=== PATIENT | female | born 1975 | race African-American/Black ===

== ENCOUNTER 2019-04-18 11:50 | Emergency (ER) | payer OTHER ==
--- OUTSIDE RECORDS SUMMARY | 2019-04-18 11:53 | XMS REPORT ---
:1975 [facility] Address [address] [place] [address] Care Team Providers Name Role Phone Unavailable Unavailable Unavailable Payers Payer Name Policy Type Policy Number Effective Date Expiration Date Problems This patient has no known problems. Allergies, Adverse Reactions, Alerts Allergy Allergy Status Severity Reaction(s) Onset Inactive Treating Comments Name Type Date Date Clinician breonna GODOY Active U 2015-07 00:00:0 0 Medications This patient has no known medications. Encounters Start End Encounter Admission Attending Care Care Encounter Date/Time Date/Time Type Type Clinicians Facility Department ID 2018-11-29 2018-11-29 Emergency E [facility]NE [id number] 13:24:00 13:24:00 2018-11-20 2018-11-20 Emergency [facility] [id number] 19:47:48 19:47:48 2018-11-18 2018-11-18 Emergency E [facility] [id number] 10:35:00 10:35:00 2018-10-17 2018-10-17 Outpatient E [facility] MED [id number] 19:48:00 19:48:00 2018-10-15 2018-10-15 Emergency E [facility] [id number] 13:41:00 13:41:00
[2019-04-18] MEDS ORDERED: NA CHLORIDE 0.9% 1,000 ML ONE ×2 (12:30→13:01)
--- NOTE | 2019-04-18 12:52 | RAD REPORT ---
EXAM DESCRIPTION: Otoniel Single View04/18/2019 12:36 pm CLINICAL HISTORY: cough COMPARISON: none FINDINGS: The lungs appear clear of acute infiltrate. The heart is normal size IMPRESSION: No acute abnormalities displayed
[2019-04-18] MEDS ORDERED: INSULIN -REGULAR HUMAN 50 UNIT/0.5 ML ML ONE (13:01)
[2019-04-18 13:05] LABS: Absolute Lymphocytes (CBC) 2.2 K/uL (0.7-4.9); Basophils % 0.9 % (0-1.3); Hematocrit 45.4 % (36.0-45.0); Lymphocytes % 34.8 % (15.3-44.8); MPV 10.2 fL (7.6-11.3); RBC Red Blood Cell Count 5.15 M/uL (3.86-4.86)
[2019-04-18 13:28] LABS: ALT/SGPT 49 U/L (12-78); AST/SGOT 34 U/L (15-37); Albumin 3.6 g/dL (3.4-5.0); Alkaline Phosphatase 108 U/L (45-117); BUN Blood Urea Nitrogen 8 mg/dL (7-18); Bicarbonate 27 mmol/L (21-32); Bilirubin Direct 0.1 mg/dL (0-0.2); Bilirubin Total 0.5 mg/dL (0.2-1.0); Glucose Level 479 mg/dL (74-106); Magnesium 1.9 mg/dL (1.8-2.4); NT PRO-BNP 11 pg/mL (<125); Protein, Total 7.7 g/dL (6.4-8.2); Sodium Level 133 mmol/L (136-145); Troponin (Emerg Dept Use Only) < 0.02 ng/mL (0.0-0.045)
[2019-04-18 13:29] LABS: Urine Blood TRACE (NEG); Urine Glucose 2+ (NEG); Urine Protein NEGATIVE (NEG); Urine pH 6.5 (5.0-7.0)
[2019-04-18] MEDS ORDERED: IPRATROPIUM BROM 0.5MG/2.5ML ONE (13:45)
[2019-04-18] MEDS ORDERED: ALBUTEROL 2.5 MG/3 ML NEB SOL ONE (13:45)
[2019-04-18] MEDS ORDERED: INSULIN GLARGINE 100 UNITS/ML SQ ONE (14:00)
[2019-04-18] MEDS ORDERED: AZITHROMYCIN 250 MG TAB ONE (14:12)
[2019-04-18] MEDS ORDERED: CEFTRIAXONE/SWI 1gm 1 GM/10 ML SYR ONE (14:13)
[2019-04-18] MEDS ORDERED: HYDROCODONE/CHLORPHEN 5 ML/OSYR ONE (14:13)
--- NOTE | 2019-04-18 14:44 | ER ---
Nurse's Notes [facility] Name: Beatriz Cardona Age: 44 yrs Sex: Female : 1975 Arrival Date: 04/18/2019 Time: 11:55 Bed 20 Private MD: Diagnosis: Type 1 diabetes mellitus;Bronchitis, not specified as acute or chronic;Tobacco use;Tobacco abuse counseling;Cough Presentation: 04/18 12:12 Presenting complaint: Sent by PCP for BGL >450. Reports generalized weakness. Hx of hb DM1, out of insulin. Transition of care: patient was not received from another setting of care. Onset of symptoms was April 18, 2019. Risk Assessment: Do you want to hurt yourself or someone else? Patient reports no desire to harm self or others. Care prior to arrival: None. 12:12 Method Of Arrival: Ambulatory hb 12:12 Acuity: DINORAH 2 hb 12:30 Initial Sepsis Screen: Does the patient meet any 2 criteria? No. Patient's initial ca1 sepsis screen is negative. Does the patient have a suspected source of infection? No. Patient's initial sepsis screen is negative. 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 - Social history:: Patient uses alcohol, claims drinking about a 6 pack/day. Smoking status: Patient uses tobacco products, smokes one-half pack cigarettes per day, Patient uses. - Ebola Screening: : Patient negative for fever greater than or equal to 101.5 degrees Fahrenheit, and additional compatible Ebola Virus Disease symptoms Patient denies exposure to infectious person Patient denies travel to an Ebola-affected area in the 21 days before illness onset. Screenin:20 Abuse screen: Denies threats or abuse. Denies injuries from another. Nutritional ca1 screening: No deficits noted. Tuberculosis screening: No symptoms or risk factors identified. Fall Risk IV access (20 points). Assessment: 12:20 General: Appears in no apparent distress. comfortable, Behavior is calm, cooperative, ca1 appropriate for age. Pain: Denies pain. Neuro: Level of Consciousness is awake, alert, obeys commands, Oriented to person, place, time, situation, Appropriate for age. Cardiovascular: Heart tones S1 S2 present Capillary refill < 3 seconds Patient's skin is warm and dry. Respiratory: Airway is patent Respiratory effort is even, unlabored, Respiratory pattern is regular, symmetrical, Breath sounds are clear bilaterally. GI: Abdomen is round non-distended, Bowel sounds present X 4 quads. Abd is soft and non tender X 4 quads. : No deficits noted. No signs and/or symptoms were reported regarding the genitourinary system. EENT: No deficits noted. No signs and/or symptoms were reported regarding the EENT system. Derm: Skin is intact, is healthy with good turgor, Skin is pink, warm \T\ dry. Musculoskeletal: Circulation, motion, and sensation intact. Capillary refill < 3 seconds, Range of motion: intact in all extremities. 13:30 Reassessment: Patient appears in no apparent distress at this time. Patient is alert, ca1 oriented x 3, equal unlabored respirations, skin warm/dry/pink. 14:36 Reassessment: Patient appears in no apparent distress at this time. Patient is alert, ca1 oriented x 3, equal unlabored respirations, skin warm/dry/pink. 15:10 Reassessment: Discharge with CPS officer. Pt alert, oriented x 4 and ambulatory. ca1 Vital Signs: 12:11 BP 142 / 89; Pulse 107; Resp 20; Temp 97.8; Pulse Ox 100% on R/A; Weight 81.65 kg; hb Height 5 ft. 3 in. (160.02 cm); Pain 0/10; 13:20 BP 112 / 87; Pulse 99; Resp 18 S; Pulse Ox 100% on R/A; ca1 14:00 BP 122 / 82; Pulse 96; Resp 19 S; Pulse Ox 97% on R/A; ca1 15:00 BP 119 / 80; Pulse 98; Resp 17 S; Pulse Ox 100% on R/A; ca1 12:11 Body Mass Index 31.89 (81.65 kg, 160.02 cm) hb ED Course: 11:55 Patient arrived in ED. mr 12:13 Triage completed. hb 12:13 Arm band placed on. hb 12:18 Juana Jackson RN is Primary Nurse. ca1 12:20 J Carlos Casillas MD is Attending Physician. carmen 12:20 Patient has correct armband on for positive identification. Placed in gown. Bed in low ca1 position. Call light in reach. Side rails up X 1. neuropsychiatric aide on. Pulse ox on. NIBP on. Warm blanket given. 12:50 No provider procedures requiring assistance completed. Initial lab(s) drawn, by me, ca1 sent to lab. Inserted saline lock: 22 gauge in right antecubital area, using aseptic technique. Blood collected. 15:11 IV discontinued, intact, bleeding controlled, No redness/swelling at site. Pressure ca1 dressing applied. Administered Medications: 12:52 Drug: NS 0.9% 1000 ml Route: IV; Rate: 1 bolus; Site: right antecubital; ca1 14:24 Follow up: Response: No adverse reaction; IV Status: Completed infusion; IV Intake: ca1 1000ml 13:00 Drug: Insulin Regular Human 10 units {Co-Signature: em (Jean [employer] Mosley [employer]).} Route: IVP; ca1 Site: right antecubital; 14:23 Follow up: Response: No adverse reaction; Blood sugar is lowered ca1 13:07 Drug: NS 0.9% 1000 ml Route: IV; Rate: 1 bolus; Site: right antecubital; ca1 14:23 Follow up: Response: No adverse reaction; IV Status: Completed infusion; IV Intake: ca1 1000ml 13:09 Drug: Insulin Regular Human 10 units {Co-Signature: em ([employer]).} Route: ca1 Sub-Q; Site: right lower abdomen; 14:23 Follow up: Response: No adverse reaction; Blood sugar is lowered ca1 13:45 Drug: Albuterol - atroVENT (3:1) (2.5 mg - 0.5 mg) 3 ml Route: Nebulizer; ca1 15:01 Follow up: Response: No adverse reaction; Marked relief of symptoms ca1 13:55 Drug: Tussionex Pennkinetic ER 5 ml Route: PO; ca1 14:50 Follow up: Response: No adverse reaction; Marked relief of symptoms; RASS: Alert and ca1 Calm (0) 14:00 Drug: Zithromax 500 mg Route: PO; ca1 15:01 Follow up: Response: No adverse reaction ca1 14:10 Drug: LanTUS 40 units Route: Sub-Q; Site: left lower abdomen; ca1 15:01 Follow up: Response: No adverse reaction; Marked relief of symptoms ca1 15:01 Follow up: Response: No adverse reaction ca1 14:22 Drug: Rocephin 1 grams Route: IV; Rate: per protocol; Site: right antecubital; ca1 15:01 Follow up: Response: No adverse reaction; IV Status: Completed infusion ca1 14:58 Drug: Xopenex 1.25 mg Route: Inhalation; ca1 Point of Care Testing: Blood Glucose: 12:11 Blood Glucose: High (>450 mg/dL); hb Ranges: Intake: 14:23 IV: 1000ml; Total: 1000ml. ca1 14:24 IV: 1000ml; Total: 2000ml. ca1 Outcome: 14:43 Discharge ordered by . carmen 15:11 Discharged to home ambulatory. ca1 15:11 Condition: stable 15:11 Discharge instructions given to patient, Instructed on discharge instructions, follow up and referral plans. medication usage, benefits of quitting smoking, Demonstrated understanding of instructions, follow-up care, medications, Prescriptions given X x5 15:13 Patient left the ED. ca1 Signatures: J Carlos Casillas MD MD cha Rivera, Haily Cobos, RN RN Juana Jackson RN RN ca1 [employer]ley [employer] em Corrections: (The following items were deleted from the chart) 13:21 12:20 Social history: Patient uses alcohol, ca1 ca1
--- NOTE | 2019-04-18 14:45 | EDPHYS ---
Physician Documentation [facility] Name: Beatriz Cardona Age: 44 yrs Sex: Female : 1975 Arrival Date: 04/18/2019 Time: 11:55 Bed 20 Private MD: ED Physician J Carlos Casillas HPI: 04/18 13:39 This 44 yrs old Black Female presents to ER via Ambulatory with complaints of High carmen Blood Sugar. 13:39 The patient or guardian reports hyperglycemia, that was potentially precipitated by no carmen particular event, forgetting medications. Onset: The symptoms/episode began/occurred 2 day(s) ago. Associated signs and symptoms: Pertinent positives: polydipsia, polyuria. Current symptoms: In the emergency department the patient's symptoms are unchanged from the initial presentation. The patient has experienced similar episodes in the past, several times. 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 - Social history:: Patient uses alcohol, claims drinking about a 6 pack/day. Smoking status: Patient uses tobacco products, smokes one-half pack cigarettes per day, Patient uses. - Ebola Screening: : Patient negative for fever greater than or equal to 101.5 degrees Fahrenheit, and additional compatible Ebola Virus Disease symptoms Patient denies exposure to infectious person Patient denies travel to an Ebola-affected area in the 21 days before illness onset. ROS: 13:40 Constitutional: Negative for fever, chills, and weight loss, Eyes: Negative for injury, carmen pain, redness, and discharge, ENT: Negative for injury, pain, and discharge, Neck: Negative for injury, pain, and swelling, Cardiovascular: Negative for chest pain, palpitations, and edema, Abdomen/GI: Negative for abdominal pain, nausea, vomiting, diarrhea, and constipation, Back: Negative for injury and pain, : Negative for injury, bleeding, discharge, and swelling, MS/Extremity: Negative for injury and deformity, Skin: Negative for injury, rash, and discoloration, Neuro: Negative for headache, weakness, numbness, tingling, and seizure, Psych: Negative for depression, anxiety, suicide ideation, homicidal ideation, and hallucinations, Allergy/Immunology: Negative for hives, rash, and allergies, Endocrine: Negative for neck swelling, polydipsia, polyuria, polyphagia, and marked weight changes, Hematologic/Lymphatic: Negative for swollen nodes, abnormal bleeding, and unusual bruising. 13:40 Respiratory: Positive for cough, shortness of breath, wheezing, expiratory. Exam: 13:40 Constitutional: This is a well developed, well nourished patient who is awake, alert, carmen and in no acute distress. Head/Face: Normocephalic, atraumatic. Eyes: Pupils equal round and reactive to light, extra-ocular motions intact. Lids and lashes normal. Conjunctiva and sclera are non-icteric and not injected. Cornea within normal limits. Periorbital areas with no swelling, redness, or edema. ENT: Nares patent. No nasal discharge, no septal abnormalities noted. Tympanic membranes are normal and external auditory canals are clear. Oropharynx with no redness, swelling, or masses, exudates, or evidence of obstruction, uvula midline. Mucous membranes moist. Neck: Trachea midline, no thyromegaly or masses palpated, and no cervical lymphadenopathy. Supple, full range of motion without nuchal rigidity, or vertebral point tenderness. No Meningismus. Chest/axilla: Normal chest wall appearance and motion. Nontender with no deformity. No lesions are appreciated. Cardiovascular: Regular rate and rhythm with a normal S1 and S2. No gallops, murmurs, or rubs. Normal PMI, no JVD. No pulse deficits. Abdomen/GI: Soft, non-tender, with normal bowel sounds. No distension or tympany. No guarding or rebound. No evidence of tenderness throughout. Back: No spinal tenderness. No costovertebral tenderness. Full range of motion. Female : Normal external genitalia. Skin: Warm, dry with normal turgor. Normal color with no rashes, no lesions, and no evidence of cellulitis. MS/ Extremity: Pulses equal, no cyanosis. Neurovascular intact. Full, normal range of motion. Neuro: Awake and alert, GCS 15, oriented to person, place, time, and situation. Cranial nerves II-XII grossly intact. Motor strength 5/5 in all extremities. Sensory grossly intact. Cerebellar exam normal. Normal gait. Psych: Awake, alert, with orientation to person, place and time. Behavior, mood, and affect are within normal limits. 13:40 Respiratory: mild respiratory distress is noted, moderate respiratory distress is noted, Respirations: labored breathing, that is mild, Breath sounds: bronchial sounds, decreased breath sounds, rhonchi, wheezing: inspiratory expiratory Respiratory rate: 18 14:43 Musculoskeletal/extremity: DVT Exam: No signs of deep vein thrombosis. no pain, no carmen swelling, no tenderness, negative Homans' sign noted on exam, no appreciated bluish discoloration, no erythema, no increased warmth. Vital Signs: 12:11 BP 142 / 89; Pulse 107; Resp 20; Temp 97.8; Pulse Ox 100% on R/A; Weight 81.65 kg; hb Height 5 ft. 3 in. (160.02 cm); Pain 0/10; 13:20 BP 112 / 87; Pulse 99; Resp 18 S; Pulse Ox 100% on R/A; ca1 14:00 BP 122 / 82; Pulse 96; Resp 19 S; Pulse Ox 97% on R/A; ca1 15:00 BP 119 / 80; Pulse 98; Resp 17 S; Pulse Ox 100% on R/A; ca1 12:11 Body Mass Index 31.89 (81.65 kg, 160.02 cm) hb MDM: 12:20 Patient medically screened. [facility] 14:43 Data reviewed: vital signs, nurses notes, lab test result(s), EKG, radiologic studies, carmen plain films. 04/18 12:17 Order name: Glucose 04/18 12:23 Order name: Glucose, Ancillary Testing; Complete Time: 13:18 EDMS 04/18 12:23 Order name: Basic Metabolic Panel [facility] 04/18 12:23 Order name: CBC with Diff [facility] 04/18 12:23 Order name: LFT's [facility] 04/18 12:23 Order name: Magnesium [facility] 04/18 12:23 Order name: NT PRO-BNP [facility] 04/18 12:23 Order name: PT-INR [facility] 04/18 12:23 Order name: Troponin (emerg Dept Use Only) [facility] 04/18 12:24 Order name: Urine Culture [facility] 04/18 13:09 Order name: Urine Dipstick--Ancillary (enter results) 04/18 13:09 Order name: Urine --Ancillary (enter results) 04/18 13:11 Order name: CBC with Automated Diff; Complete Time: 13:18 EDMS 04/18 13:11 Order name: Protime (+INR); Complete Time: 13:18 EDAK 04/18 12:23 Order name: XRAY Chest (1 view) [facility] 04/18 13:09 Order name: RAD; Complete Time: 13:18 EDAK 04/18 13:23 Order name: Glucose Level; Complete Time: 13:33 EDMS 04/18 13:29 Order name: Basic Metabolic Panel; Complete Time: 13:33 EDMS 04/18 13:29 Order name: Liver (Hepatic) Function; Complete Time: 13:33 EDMS 04/18 13:29 Order name: Troponin (Emerg Dept Use Only); Complete Time: 13:33 EDAK 04/18 13:29 Order name: NT PRO-BNP; Complete Time: 13:33 EDMS 04/18 13:29 Order name: Magnesium; Complete Time: 13:33 EDAK 04/18 13:31 Order name: Urine --Ancillary; Complete Time: 13:33 [facility] 04/18 13:31 Order name: Urine Dipstick-Ancillary; Complete Time: 13:33 [facility] 04/18 13:38 Order name: Influenza Screen (a \T\ B) [facility] 04/18 14:30 Order name: Glucose, Ancillary Testing; Complete Time: 14:42 EDAK 04/18 14:35 Order name: Influenza Screen (A ; Complete Time: 14:42 EDAK 04/18 12:23 Order name: EKG; Complete Time: 12:25 [facility] 04/18 12:23 Order name: Cardiac monitoring; Complete Time: 12:56 [facility] 04/18 12:23 Order name: EKG - Nurse/Tech; Complete Time: 14:23 [facility] 04/18 12:23 Order name: IV Saline Lock; Complete Time: 12:56 [facility] 04/18 12:23 Order name: Labs collected and sent; Complete Time: 12:57 [facility] 04/18 12:24 Order name: O2 Per Protocol; Complete Time: 12:57 [facility] 04/18 12:24 Order name: O2 Sat Monitoring; Complete Time: 12:56 [facility] 04/18 12:24 Order name: Urine Dipstick-Ancillary (obtain specimen); Complete Time: 12:56 [facility] 04/18 12:24 Order name: Urine Test (obtain specimen); Complete Time: 12:56 [facility] 04/18 13:34 Order name: Blood Glucose Level: 2 pm; Complete Time: 14:23 [facility] Administered Medications: 12:52 Drug: NS 0.9% 1000 ml Route: IV; Rate: 1 bolus; Site: right antecubital; ca1 14:24 Follow up: Response: No adverse reaction; IV Status: Completed infusion; IV Intake: ca1 1000ml 13:00 Drug: Insulin Regular Human 10 units {Co-Signature: em (Jean [employer] Mosley [employer]).} Route: IVP; ca1 Site: right antecubital; 14:23 Follow up: Response: No adverse reaction; Blood sugar is lowered ca1 13:07 Drug: NS 0.9% 1000 ml Route: IV; Rate: 1 bolus; Site: right antecubital; ca1 14:23 Follow up: Response: No adverse reaction; IV Status: Completed infusion; IV Intake: ca1 1000ml 13:09 Drug: Insulin Regular Human 10 units {Co-Signature: em ([employer]ley [employer]).} Route: ca1 Sub-Q; Site: right lower abdomen; 14:23 Follow up: Response: No adverse reaction; Blood sugar is lowered ca1 13:45 Drug: Albuterol - atroVENT (3:1) (2.5 mg - 0.5 mg) 3 ml Route: Nebulizer; ca1 15:01 Follow up: Response: No adverse reaction; Marked relief of symptoms ca1 13:55 Drug: Tussionex Pennkinetic ER 5 ml Route: PO; ca1 14:50 Follow up: Response: No adverse reaction; Marked relief of symptoms; RASS: Alert and ca1 Calm (0) 14:00 Drug: Zithromax 500 mg Route: PO; ca1 15:01 Follow up: Response: No adverse reaction ca1 14:10 Drug: LanTUS 40 units Route: Sub-Q; Site: left lower abdomen; ca1 15:01 Follow up: Response: No adverse reaction; Marked relief of symptoms ca1 15:01 Follow up: Response: No adverse reaction ca1 14:22 Drug: Rocephin 1 grams Route: IV; Rate: per protocol; Site: right antecubital; ca1 15:01 Follow up: Response: No adverse reaction; IV Status: Completed infusion ca1 14:58 Drug: Xopenex 1.25 mg Route: Inhalation; ca1 Point of Care Testing: Blood Glucose: 12:11 Blood Glucose: High (>450 mg/dL); hb Ranges: Critical Glucose Levels:Adult <50 mg/dl or >400 mg/dl <40 mg/dl or >180 mg/dl Disposition: 04/18/19 14:43 Discharged to Home. Impression: Type 1 diabetes mellitus, Bronchitis, not specified as acute or chronic, Tobacco use, Tobacco abuse counseling, Cough. - Condition is Stable. - Discharge Instructions: Acute Bronchitis, Adult, How to Use an Inhaler, Steps to Quit Smoking, Smoking Hazards, Upper Respiratory Infection, Adult, Cool Mist Vaporizer, Upper Respiratory Infection, Adult, [id number], Cough, Adult, Dsvm-to-Vlaz, Cough, Adult. - Prescriptions for Bromfed DM 2- 30-10 mg/5 mL Oral syrup - take 10 milliliter by ORAL route 6 times per day; 160 milliliter. Lantus 100 unit/mL Subcutaneous solution - inject 40 unit by SUBCUTANEOUS route once daily; 1 Cartridge. Novolin R 100 unit/mL Injection solution - inject 5 unit by SUBCUTANEOUS route 3 times per day with breakfast lunch and dinner; 1 Syringe. Albuterol Sulfate 90 mcg/actuation - inhale 1-2 puff by INHALATION route every 4-6 hours; 1 Inhaler. Zithromax 500 mg Oral Tablet - take 1 tablet by ORAL route once daily for 4 days; 4 tablet. - Medication Reconciliation Form, Thank You Letter, Antibiotic Education, Prescription Opioid Use form. - Follow up: Private Physician; When: 2 - 3 days; Reason: Recheck today's complaints, Continuance of care, Re-evaluation by your physician. - Problem is new. - Symptoms have improved. Signatures: Dispatcher [employer] EDJ Carlos Mark MD MD cha Baxter, Heather, RN RN hb Juana Jackson RN RN ca1 Jean [employer] Mosley [employer] em Corrections: (The following items were deleted from the chart) 13:21 12:20 Social history: Patient uses alcohol, ca1 ca1 15:13 14:43 04/18/2019 14:43 Discharged to Home. Impression: Type 1 diabetes mellitus; ca1 Bronchitis, not specified as acute or chronic; Tobacco use; Tobacco abuse counseling; Cough. Condition is Stable. Discharge Instructions: Acute Bronchitis, Adult, How to Use an Inhaler, Steps to Quit Smoking, Smoking Hazards, Upper Respiratory Infection, Adult, Cool Mist Vaporizer, Upper Respiratory Infection, Adult, [id number], Cough, Adult, [id number]-[id number]-Ubia, Cough, Adult. Prescriptions for Bromfed DM 2-30-10 mg/5 mL Oral syrup - take 10 milliliter by ORAL route 6 times per day; 160 milliliter, Lantus 100 unit/mL Subcutaneous solution - inject 40 unit by SUBCUTANEOUS route once daily; 1 Cartridge, Novolin R 100 unit/mL Injection solution - inject 5 unit by SUBCUTANEOUS route 3 times per day with breakfast lunch and dinner; 1 Syringe, Albuterol Sulfate 90 mcg/actuation - inhale 1-2 puff by INHALATION route every 4-6 hours; 1 Inhaler, Zithromax 500 mg Oral Tablet - take 1 tablet by ORAL route once daily for 4 days; 4 tablet. and Forms are Medication Reconciliation Form, Thank You Letter, Antibiotic Education, Prescription Opioid Use. Follow up: Private Physician; When: 2 - 3 days; Reason: Recheck today's complaints, Continuance of care, Re-evaluation by your physician. Problem is new. Symptoms have improved. carmen
[2019-04-18] MEDS ORDERED: LEVALBUTEROL 1.25 MG/3 ML NEB ONE (14:57)
[2019-04-18 15:56] VITALS: TEMP 97.8
[2019-04-18 15:59] VITALS: BP 119/80; O2SAT 100
--- NOTE | 2019-04-18 16:01 | EKG ---
Test Date: 2019-04-18 Test Time: 13:55:47 Pinsetter Mechanic Automatic: CARISA MEASUREMENT RESULTS: Intervals: Rate: 97 IN: 118 QRSD: 64 QT: 330 QTc: 419 [place]: P: 69 IN: 118 QRS: 40 T: 39 INTERPRETIVE STATEMENTS: Normal sinus rhythm Normal ECG No previous ECG available for comparison Electronically Signed On 04-18-19 16:00:38 TEACHER OF FAMILY AND CONSUMER SCIENCE by Rob Aguilar
== END 2019-04-18 15:13 | disposition home or self-care (01) ==
LOC: ER 11:50
DX: J40 Bronchitis, not specified as acute or chronic (principal); E10.9 Type 1 diabetes mellitus without complications; Z71.6 Tobacco abuse counseling; Z72.0 Tobacco use
CPT/HCPCS: 96365; 96361; 93005; 87088; 85025; 87086; 80048; 36415; 83735; 82947 ×3; 81025; 85610; 80076; 81003; 84484; 83880; 87804 ×2; 71045; 94640; 96375; 96372; 99285; J1815; J0696; J7030 ×2